=== PATIENT | male | born 1950 | race Caucasian/White ===

== ENCOUNTER 2023-04-03 14:46 | Inpatient (IN) | payer OTHER ==
[2023-04-03] MEDS ORDERED: Diltiazem 25 MG/5 ML SDV IVPUSH ONE ×3 (15:07→17:16)
[2023-04-03] MEDS: Sodium Chloride 0.9% 10 ML Syringe FLUSH PRN ×2 (15:11→20:26)
[2023-04-03] MEDS ORDERED: Apixaban 5 MG Tab PO ONE (15:31)
[2023-04-03 15:46] LABS: BASOPHILS ABSOLUTE AUTO 0.02 K/mm3 (0.01-0.08); BASOPHILS PERCENT AUTO 0.2 % (0.1-1.2); EOSINOPHILS ABSOLUTE AUTO 0.02 K/mm3 (0.04-0.54); EOSINOPHILS PERCENT AUTO 0.2 (0.8-7.0); HEMATOCRIT 39.5 % (40.1-51.0); HEMOGLOBIN 14.3 gm/dl (13.7-17.5); IMMATURE GRAN ABSOLUTE AUTO 0.06 K/mm3 (0.00-0.10); IMMATURE GRAN PERCENT AUTO 0.5 % (<=1.0); LYMPHOCYTES ABSOLUTE AUTO 1.82 K/mm3 (1.32-3.57); MEAN CORPUSCULAR HEMOGLOBIN 38.5 pg (25.7-32.2); MEAN CORPUSCULAR HGB CONC 36.2 g/dl (32.2-35.5); MEAN CORPUSCULAR VOLUME 106.5 fl (79.0-92.2); MONOCYTES ABSOLUTE AUTO 1.62 K/mm3 (0.30-0.82); MONOCYTES PERCENT AUTO 12.5 % (5.3-12.2); NEUTROPHILS ABSOLUTE AUTO 9.45 K/mm3 (1.78-5.38); NEUTROPHILS PERCENT AUTO 72.6 % (34.0-67.9); PLATELET COUNT,PLT 367 K/mm3 (163-337); RED BLOOD CELL COUNT 3.71 M/mm3 (4.63-6.08); WHITE BLOOD CELL COUNT,WBC 12.99 K/mm3 (4.23-9.07)
[2023-04-03 15:57] LABS: INR 1.08; PROTHROMBIN TIME 11.5 SECONDS (9.7-12.0)
[2023-04-03 16:02] LABS: A/G RATIO 0.7 (1-2); ALBUMIN 3.3 g/dl (3.4-5.0); ANION GAP 15.6 (5-15); BILIRUBIN TOTAL 1.4 mg/dL (0.2-1.0); BUN/CREATININE RATIO 11.7 (14-18); CREATININE 1.2 mg/dL (0.7-1.3); EST CRCL DRUG DOSING (CG) 61.01 mL/min; MAGNESIUM 1.1 mg/dL (1.8-2.4); POTASSIUM,K 3.6 mEq/L (3.5-5.1); PROTEIN TOTAL,TP 7.8 g/dl (6.4-8.2)
[2023-04-03] MEDS ORDERED: Diltiazem 125 MG in Sodium Chloride 0.9% 100 ML IV SCH (16:15)
[2023-04-03 16:24] LABS: D-DIMER QUANTITATIVE 2.86 mg/L (0.19-0.50)
[2023-04-03 16:56] LABS: SLIDE REVIEW ABNORMAL SMEAR
[2023-04-03] MEDS ORDERED: Ondansetron 4 MG/2 ML SDV IV PRN (17:50)
[2023-04-03] MEDS ORDERED: Sodium Chloride 0.9% 10 ML Syringe FLUSH PRN (17:50)
[2023-04-03] MEDS ORDERED: Acetaminophen 325 MG Tab PO PRN (17:50)
[2023-04-03] MEDS ORDERED: Ondansetron 4 MG Tab.DIS PO PRN (17:50)
[2023-04-03] MEDS ORDERED: Docusate Sodium 100 MG Cap PO PRN (17:50)
[2023-04-03] MEDS ORDERED: Sodium Chloride 0.9% 1,000 ML IV SCH (18:00)
[2023-04-03] MEDS ORDERED: Iopamidol 755 Mg/ML 100 ML Bottle IVPUSH ONE (18:44)
[2023-04-03] MEDS ORDERED: Sodium Chloride 0.9% 100 ML IV SCH (18:45)
[2023-04-03] MEDS ORDERED: Sodium Chloride 1 GM Tab PO SCH (21:00)
[2023-04-04 06:17] LABS: BASOPHILS ABSOLUTE AUTO 0.02 K/mm3 (0.01-0.08); BASOPHILS PERCENT AUTO 0.2 % (0.1-1.2); EOSINOPHILS PERCENT AUTO 0 (0.8-7.0); HEMATOCRIT 36.9 % (40.1-51.0); IMMATURE GRAN ABSOLUTE AUTO 0.02 K/mm3 (0.00-0.10); IMMATURE GRAN PERCENT AUTO 0.2 % (<=1.0); LYMPHOCYTES ABSOLUTE AUTO 1.55 K/mm3 (1.32-3.57); LYMPHOCYTES PERCENT AUTO 15.5 % (21.8-53.1); MEAN CORPUSCULAR HEMOGLOBIN 37.3 pg (25.7-32.2); MEAN CORPUSCULAR HGB CONC 34.7 g/dl (32.2-35.5); MEAN CORPUSCULAR VOLUME 107.6 fl (79.0-92.2); MEAN PLATELET VOLUME 8.8 fl (9.4-12.3); MONOCYTES ABSOLUTE AUTO 1.25 K/mm3 (0.30-0.82); MONOCYTES PERCENT AUTO 12.5 % (5.3-12.2); NEUTROPHILS ABSOLUTE AUTO 7.19 K/mm3 (1.78-5.38); NEUTROPHILS PERCENT AUTO 71.6 % (34.0-67.9); PLATELET COUNT,PLT 330 K/mm3 (163-337); RED BLOOD CELL COUNT 3.43 M/mm3 (4.63-6.08); WHITE BLOOD CELL COUNT,WBC 10.03 K/mm3 (4.23-9.07)
[2023-04-04 06:28] LABS: HEMOGLOBIN 12.8 gm/dl (13.7-17.5)
[2023-04-04 06:42] LABS: A/G RATIO 0.7 (1-2); ALBUMIN 2.7 g/dl (3.4-5.0); ANION GAP 9.6 (5-15); BILIRUBIN TOTAL 0.7 mg/dL (0.2-1.0); CALCIUM 8.8 mg/dL (8.5-10.1); CREATININE 1.1 mg/dL (0.7-1.3); EST CRCL DRUG DOSING (CG) 66.55 mL/min; MAGNESIUM 1.1 mg/dL (1.8-2.4); POTASSIUM,K 3.6 mEq/L (3.5-5.1); PROTEIN TOTAL,TP 6.7 g/dl (6.4-8.2)
[2023-04-04] MEDS ORDERED: Magnesium Sulfate (4.06 MEQ/ML) 5 GM/10 ML SDV IV STA (07:25)
[2023-04-04] MEDS ORDERED: Magnesium Sulfate/Water 4 GM in Premix Bag 1 BAG IV ONE (07:30)
[2023-04-04] MEDS ORDERED: Apixaban 5 MG Tab PO SCH (09:00)
== END 2023-04-04 12:45 | DRG 308 ==
LOC: JD.ED 14:46 → EDUNIT# 14:46 → JD.ICU 17:50
PROVIDERS: ADMIT Hospitalist; ATTEND Hospitalist
DX: I48.92 Unspecified atrial flutter (principal); J96.01 Acute respiratory failure with hypoxia; E87.1 Hypo-osmolality and hyponatremia; I31.39 Other pericardial effusion (noninflammatory); I45.10 Unspecified right bundle-branch block; I10 Essential (primary) hypertension; M19.90 Unspecified osteoarthritis, unspecified site; E87.8 Other disorders of electrolyte and fluid balance, not elsewhere classified; K21.9 Gastro-esophageal reflux disease without esophagitis; I11.0 Hypertensive heart disease with heart failure; I50.9 Heart failure, unspecified; F10.21 Alcohol dependence, in remission; Z96.649 Presence of unspecified artificial hip joint; Z97.3 Presence of spectacles and contact lenses; Z98.49 Cataract extraction status, unspecified eye; Z98.890 Other specified postprocedural states; Z79.01 Long term (current) use of anticoagulants; E66.9 Obesity, unspecified; Z99.81 Dependence on supplemental oxygen; Z68.27 Body mass index [BMI] 27.0-27.9, adult; F17.210 Nicotine dependence, cigarettes, uncomplicated; Z79.899 Other long term (current) drug therapy
CPT/HCPCS: 36415; 71045; 80053; 83735; 83880; 84484; 85025; 85379; 85610; 93005; 96365; 96366; 96376; 99285; A9270; J3490 ×5; 71275; 71275-26; 84443; 93010; 93306; 99223; 99239; J0282; J3475; Q9967

== ENCOUNTER 2023-05-13 10:33 | Emergency (ER) | payer OTHER ==
[2023-05-13] MEDS ORDERED: Sodium Chloride 0.9% 10 ML Syringe FLUSH PRN (11:25)
[2023-05-13] MEDS ORDERED: Sodium Chloride 0.9% 1,000 ML IV SCH (11:30)
[2023-05-13 12:00] LABS: BASOPHILS PERCENT AUTO 0.4 % (0.0-1.0); EOSINOPHILS PERCENT AUTO 0.6 % (0.0-6.0); HEMATOCRIT 37.4 % (42.0-52.0); HEMOGLOBIN 12.7 gm/dl (14.0-18.0); IMMATURE GRAN ABSOLUTE AUTO 0.02 K/mm3 (0.00-0.05); IMMATURE GRAN PERCENT AUTO 0.3 % (0.0-0.4); LYMPHOCYTES ABSOLUTE AUTO 2.2 K/mm3 (1.0-4.8); LYMPHOCYTES PERCENT AUTO 32.2 % (24.0-44.0); MEAN CORPUSCULAR HEMOGLOBIN 35.6 pg (28.0-32.0); MEAN CORPUSCULAR VOLUME 104.8 fl (83.0-99.0); MEAN PLATELET VOLUME 8.6 fl (9.4-12.4); MONOCYTES ABSOLUTE AUTO 0.5 K/mm3 (0.0-0.8); MONOCYTES PERCENT AUTO 7.5 % (0.0-8.0); NEUTROPHILS ABSOLUTE AUTO 3.9 K/mm3 (1.8-7.7); PLATELET COUNT,PLT 322 K/mm3 (150-400); RED BLOOD CELL COUNT 3.57 M/mm3 (4.52-5.90); WHITE BLOOD CELL COUNT,WBC 6.67 K/mm3 (3.9-11.3)
[2023-05-13] MEDS ORDERED: Propofol 200 MG/20 ML SDV IVPUSH ONE (12:05)
[2023-05-13] MEDS ORDERED: Ondansetron 4 MG/2 ML SDV IVPUSH ONE (12:45)
[2023-05-13 12:49] LABS: A/G RATIO 0.7 (1-2); ANION GAP 13.6 (5-15); BILIRUBIN TOTAL 0.3 mg/dL (0.2-1.0); BUN/CREATININE RATIO 19.4 (14-18); CALCIUM 9.3 mg/dL (8.5-10.1); CREATININE 1.6 mg/dL (0.7-1.3); EST CRCL DRUG DOSING (CG) 44.36 mL/min; POTASSIUM,K 4.6 mEq/L (3.5-5.1); PROTEIN TOTAL,TP 7.1 g/dl (6.4-8.2); TSH 3.441 uIU/mL (0.358-3.74)
== END 2023-05-13 14:38 | disposition home or self-care (01) ==
LOC: JD.ED 10:33
DX: I48.92 Unspecified atrial flutter (principal); I10 Essential (primary) hypertension; K21.9 Gastro-esophageal reflux disease without esophagitis; E66.9 Obesity, unspecified; Z68.24 Body mass index [BMI] 24.0-24.9, adult; Z79.899 Other long term (current) drug therapy
CPT/HCPCS: 36415; 80053; 84443; 84484; 85025; 92960; 93005; 96361; 96374; 99152; 99153; 99285; J2405; J2704; J7030; 93010; 99284